=== PATIENT | male | born 1995 | race Caucasian/White ===

== ENCOUNTER 2020-05-22 11:04 | Emergency (ER) | payer OTHER ==
[~2020-05-22] VITALS: Ht 175.3 cm; Wt 73.2 kg
[2020-05-22] MEDS ORDERED: MULTCAP PO ×2 (11:19→16:26)
[2020-05-22] MEDS ORDERED: NS 1,000 ML IV SCH (11:30)
[2020-05-22] MEDS ORDERED: KETOROLAC 30 MG/ML 1ML VIAL IV ONE (11:30)
[2020-05-22] MEDS ORDERED: METOCLOPRAMIDE INJ 10MG/2ML VIAL (J2765 PER 1) IV ONE (11:30)
[2020-05-22 12:05] LABS: BASO % 0.3 % (0.0-1.0); EOS # 0.1 10^3/uL (0.0-0.5); EOS % 1.6 % (0.0-3.0); HEMATOCRIT 42.4 % (42.0-52.0); HEMOGLOBIN 14.7 g/dl (13.5-17.5); LYMPH # 1.3 10^3/uL (1.5-5.0); LYMPH % 21.1 % (24.0-44.0); MEAN CORPUSCULAR HEMOGLOBIN 30.6 pg (27.0-33.0); MEAN CORPUSCULAR HGB CONC 34.7 g/dl (32.0-36.5); MEAN CORPUSCULAR VOLUME 88.1 fl (80.0-96.0); MONO # 0.5 10^3/uL (0.0-0.8); MONO % 7.9 % (0.0-5.0); NEUTROPHILS # 4.3 10^3/uL (1.5-8.5); NEUTROPHILS % 68.8 % (36.0-66.0); PLATELET COUNT, AUTOMATED 216 10^3/uL (150-450); RED BLOOD COUNT 4.81 10^6/uL (4.30-6.10); WHITE BLOOD COUNT 6.3 10^3/uL (4.0-10.0)
--- NOTE | 2020-05-22 12:14 | REPVR ---
PROCEDURE INFORMATION: Exam: CT Abdomen And Pelvis Without Contrast Exam date and time: 05/22/2020 11:21 AM Age: 24 years old Clinical indication: Abdominal pain; Flank; Right; Additional info: Rigth flank pain TECHNIQUE: Imaging protocol: Computed tomography of the abdomen and pelvis without contrast. Radiation optimization: All CT scans at this facility use at least one of these dose optimization techniques: automated exposure control; mA and/or kV adjustment per patient size (includes targeted exams where dose is matched to clinical indication); or iterative reconstruction. COMPARISON: No relevant prior studies available. FINDINGS: Detailed evaluation of the abdominal and pelvic viscera is somewhat limited in the absence of intravenous contrast. Pleural space: Mild interstitial prominence without acute airspace or pleural disease. Liver: No focal hepatic mass. Gallbladder and bile ducts: No cholelithiasis or biliary ductal dilatation. Pancreas: No pancreatic mass or ductal dilatation. Spleen: No splenomegaly. Adrenals: Unremarkable adrenals. Kidneys and ureters: Marked right hydronephrosis in association with a 4 mm right ureteral calculus at the L3 level. Nonobstructing 2 mm right renal calculus. Stomach and bowel: Mildly dilated fluid-filled stomach. No significant small bowel dilatation. Prominent stool. Appendix: No acute appendicitis. Intraperitoneal space: No free fluid. Vasculature: Normal caliber of the abdominal aorta. Lymph nodes: Subcentimeter lymph nodes. Bladder: Normal bladder morphology. Reproductive: Symmetric prominence of the seminal vesicles. Bones/joints: No acute osseous pathology. IMPRESSION: 1. Marked right hydronephrosis in association with a 4 mm right ureteral calculus at the L3 level. 2. Nonobstructing 2 mm right renal calculus. Electronically signed by: Carlos Eduardo Aceves On 05/22/2020 12:14:25 PM
[2020-05-22 12:37] LABS: BLOOD UREA NITROGEN 16 MG/DL (7-18); CALCIUM LEVEL 9.2 MG/DL (8.5-10.1); CARBON DIOXIDE LEVEL 25 MEQ/L (21-32); CHLORIDE LEVEL 107 MEQ/L (98-107); CREATININE FOR GFR 1.09 MG/DL (0.70-1.30); GLOMERULAR FILTRATION RATE > 60.0 (>60); GLUCOSE, FASTING 109 MG/DL (70-100); SODIUM LEVEL 140 MEQ/L (136-145)
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
[2020-05-22] MEDS ORDERED: NS IV ONE (14:00)
[2020-05-22] MEDS ORDERED: KETAMINE HCL IV ONE (14:00)
[2020-05-22] MEDS ORDERED: KETO10TAB PO ×2 (14:09→16:26)
[2020-05-22] MEDS ORDERED: FLOM0.4C39 PO ×2 (14:10→16:26)
[2020-05-22] MEDS ORDERED: MORPHINE 4 MG/ML 1ML VIAL/SYRINGE (J2270) IV ONE (14:15)
[2020-05-22 15:15] VITALS: BP 125/59
== END 2020-05-22 15:50 | disposition home or self-care (01) ==
LOC: M ED 11:04 → EDBD 11:04 → M ED 15:50
DX: N20.1 Calculus of ureter (principal); N13.30 Unspecified hydronephrosis; F17.200 Nicotine dependence, unspecified, uncomplicated
CPT/HCPCS: 74176; 76870; 80048; 81001; 85025; 93976; 96374; 96375; 99284; J1885; J2270; J2765

== ENCOUNTER 2020-07-18 14:13 | Emergency (ER) | payer OTHER ==
[~2020-07-18] VITALS: Ht 175.3 cm; Wt 78.7 kg
[2020-07-18 14:13] VITALS: BP 143/90
[~2020-07-18 14:13] MED LIST: FLOM0.4C39 PO; KETO10TAB PO; MULTCAP PO
[2020-07-18] MEDS ORDERED: LIDOCAINE 1% MDV 20ML VIAL SC ONE (14:45)
== END 2020-07-18 15:22 | disposition home or self-care (01) ==
LOC: M ED 14:13
DX: S61.411A Laceration without foreign body of right hand, initial encounter (principal); W26.0XXA Contact with knife, initial encounter; Y92.099 Unspecified place in other non-institutional residence as the place of occurrence of the external cause; Y93.89 Activity, other specified; Y99.9 Unspecified external cause status

== ENCOUNTER 2020-08-10 21:05 | Emergency (ER) | payer OTHER ==
[~2020-08-10] VITALS: Ht 175.3 cm; Wt 77.3 kg
[2020-08-10] MEDS ORDERED: OXYCODONE/APAP 5MG/325MG(BULK FOR ED) 1 TABLET PO ONE (22:30)
[2020-08-10] MEDS ORDERED: BACI500O21 TOP (22:40)
[2020-08-10] MEDS ORDERED: MORPHINE 4 MG/ML 1ML VIAL/SYRINGE (J2270) IV ONE (22:45)
[2020-08-10 23:07] VITALS: BP 143/97
== END 2020-08-10 23:12 | disposition home or self-care (01) ==
LOC: M ED 21:05
DX: T23.202A Burn of second degree of left hand, unspecified site, initial encounter (principal); T31.0 Burns involving less than 10% of body surface; X19.XXXA Contact with other heat and hot substances, initial encounter; Y92.099 Unspecified place in other non-institutional residence as the place of occurrence of the external cause; Y93.9 Activity, unspecified; Y99.9 Unspecified external cause status; Z79.899 Other long term (current) drug therapy
CPT/HCPCS: 16000; 96374; 99284; J2270

== ENCOUNTER 2020-08-15 17:20 | Observation (INO) | payer OTHER ==
[~2020-08-15] VITALS: Ht 175.3 cm; Wt 80.6 kg
[~2020-08-15 17:20] MED LIST changes: +BACI500O21 TOP
[2020-08-15] MEDS ORDERED: KETOROLAC 30 MG/ML 1ML VIAL As Ordered ONE (17:43)
[2020-08-15] MEDS ORDERED: ONDANSETRON 4MG/2ML VIAL IV ONE (17:45)
[2020-08-15] MEDS ORDERED: NS 1,000 ML IV ONE (17:45)
[2020-08-15] MEDS ORDERED: KETOROLAC 30 MG/ML 1ML VIAL IV ONE (17:45)
[2020-08-15 17:51] LABS: BASO % 0.3 % (0.0-1.0); EOS # 0.1 10^3/uL (0.0-0.5); HEMATOCRIT 45.9 % (42.0-52.0); HEMOGLOBIN 15.6 g/dl (13.5-17.5); LYMPH % 14.6 % (24.0-44.0); MEAN CORPUSCULAR HEMOGLOBIN 30.8 pg (27.0-33.0); MEAN CORPUSCULAR VOLUME 90.5 fl (80.0-96.0); MONO # 1.1 10^3/uL (0.0-0.8); MONO % 8.3 % (0.0-5.0); NEUTROPHILS # 10.1 10^3/uL (1.5-8.5); NEUTROPHILS % 75.4 % (36.0-66.0); PLATELET COUNT, AUTOMATED 237 10^3/uL (150-450); RED BLOOD COUNT 5.07 10^6/uL (4.30-6.10); WHITE BLOOD COUNT 13.4 10^3/uL (4.0-10.0)
[2020-08-15] MEDS ORDERED: TAMS1CAP17 PO (17:55)
[2020-08-15] MEDS ORDERED: LOPE-39 PO (17:55)
[2020-08-15] MEDS ORDERED: ACET1TAB55 PO (17:57)
[2020-08-15 18:14] LABS: ALBUMIN 4.5 GM/DL (3.2-5.2); BILIRUBIN,DIRECT 0.2 MG/DL (0.0-0.2); BILIRUBIN,TOTAL 0.7 MG/DL (0.2-1.0); TOTAL PROTEIN 7.6 GM/DL (6.4-8.2)
--- NOTE | 2020-08-15 18:26 | REPVR ---
PROCEDURE INFORMATION: Exam: CT Abdomen And Pelvis Without Contrast Exam date and time: 08/15/2020 5:58 PM Age: 24 years old Clinical indication: Abdominal pain; Localized; Right; Additional info: Right flank pain/hx ureterolithiasis TECHNIQUE: Imaging protocol: Computed tomography of the abdomen and pelvis without contrast. Radiation optimization: All CT scans at this facility use at least one of these dose optimization techniques: automated exposure control; mA and/or kV adjustment per patient size (includes targeted exams where dose is matched to clinical indication); or iterative reconstruction. COMPARISON: CT ABD PELVIS W/O CONTRAST 05/22/2020 11:32 AM FINDINGS: Limitations: The absence of intravenous contrast significantly reduces sensitivity for infectious, inflammatory, neoplastic and vascular abnormalities. The absence of enteric contrast significantly reduces sensitivity for gastrointestinal pathology. Lungs: The lung bases are clear. Heart: Heart size is normal. Liver: Normal. No mass. Gallbladder and bile ducts: Normal. No calcified stones. No ductal dilation. Pancreas: Normal. No ductal dilation. Spleen: Normal. No splenomegaly. Adrenal glands: Normal. No mass. Kidneys and ureters: A 7 x 6 x 4 mm stone at the right ureterovesicular junction causes severe right hydronephrosis and moderate hydroureter. Moderate right perinephric stranding is worse than it was 3 months ago. The left kidney and ureter are unremarkable. Stomach and bowel: The stomach is full of food. The stomach and duodenum are unremarkable. The small bowel is normal in caliber without wall thickening. The colon is unremarkable. There is no acute colonic distention, diverticulosis or inflammation. Appendix: The appendix is normal in caliber without surrounding inflammation. Intraperitoneal space: Unremarkable. No free air. No significant fluid collection. Vasculature: Unremarkable. No abdominal aortic aneurysm. Lymph nodes: Unremarkable. No enlarged lymph nodes. Urinary bladder: Unremarkable as visualized. Reproductive: The prostate appears appropriate for 24 years of age. Bones/joints: Unremarkable. No acute fracture. Soft tissues: Unremarkable. IMPRESSION: A 7 x 6 x 4 mm stone at the right ureterovesicular junction causes severe right hydronephrosis and moderate hydroureter. On the comparison CT 3 months ago, this stone was at the ureteropelvic junction. Compared to the prior CT, the right hydronephrosis is worse. The right renal pelvis is 3.9 cm in AP dimension, compared to 3.0 cm previously. Because the stone is too large to pass spontaneously, a urology consultation is recommended. Electronically signed by: Sean Renee On 08/15/2020 18:26:20 PM
[2020-08-15] MEDS ORDERED: HYDROMORPHONE HCL 0.5 MG/ 0.5 ML SYRINGE (J1170 PER 1) IV PRN (22:00)
[2020-08-15] MEDS ORDERED: ONDANSETRON 4MG/2ML VIAL IV PRN (22:15)
[2020-08-15 22:21] VITALS: BP 141/75
[2020-08-15] MEDS: KETOROLAC 30 MG/ML 1ML VIAL IV PRN (22:29)
[2020-08-15] MEDS: LR 1,000 ML IV SCH (23:08)
[2020-08-16] MEDS ORDERED: ceFAZolin SOD 2 GM in IV 1 EA IV ONE (06:00)
[2020-08-16 06:50] VITALS: BP 136/76
[2020-08-16] MEDS: KETOROLAC 30 MG/ML 1ML VIAL IV PRN ×2 (06:52→12:42)
[2020-08-16] MEDS ORDERED: CONRAY-60 60% 50ML VIAL (Q9961) As Ordered ONE (07:43)
[2020-08-16] MEDS ORDERED: ceFAZolin 2 GM/D5W 50 ML IV BAG (J0690 PER 500MG) As Ordered ONE (08:03)
[2020-08-16] MEDS ORDERED: propofoL 200 MG/20 ML VIAL As Ordered ONE (08:09)
[2020-08-16] MEDS ORDERED: LIDOCAINE 2% 100MG/5ML SDV (FOR ANES.) As Ordered ONE (08:09)
[2020-08-16] MEDS ORDERED: fentaNYL 100 MCG/2 ML INJECTION (J3010) As Ordered ONE ×3 (08:13→10:21)
[2020-08-16] MEDS ORDERED: MIDAZOLAM INJ 2MG/2ML VIAL (J2250 PER 1MG) As Ordered ONE (08:13)
[2020-08-16] MEDS ORDERED: KETOROLAC 60MG 2ML VIAL As Ordered ONE (08:52)
[2020-08-16] MEDS ORDERED: ONDANSETRON 4MG/2ML VIAL As Ordered ONE (08:52)
[2020-08-16] MEDS ORDERED: dexameTHASONE 4 MG/ML 1ML VIAL (J1100 PER 1MG) As Ordered ONE (08:52)
[2020-08-16] MEDS ORDERED: oxyBUTYnin *DITROPAN XL* 5 MG TABCR PO SCH (09:00)
[2020-08-16] MEDS ORDERED: INFLUENZA QUADRIVALENT PF VACCINE 0.5ML SYRINGE IM ONE (09:00)
[2020-08-16] MEDS ORDERED: MEPERIDINE INJ 25 MG/ML VIAL (J2175) As Ordered ONE (09:46)
[2020-08-16] MEDS: fentaNYL 100 MCG/2 ML INJECTION (J3010) IV PRN ×8 (09:50→10:40)
[2020-08-16] MEDS: MEPERIDINE INJ 25 MG/ML VIAL (J2175) IV PRN ×2 (09:50→09:55)
--- NOTE | 2020-08-16 09:51 | REP ---
INDICATION: RIGHT LASER LITHOTRIPSY, STENT PLACEMENT. COMPARISON: None TECHNIQUE: Single spot view obtained using a portable C-arm device. FINDINGS: A double pigtail stent is seen on the right the proximal portion of which is in the region of the renal pelvis in the distal portion of which is uncoiled in the urinary bladder. 12 seconds of fluoroscopy time was provided for the exam. IMPRESSION: As above <Electronically signed by Ronaldo De La Rosa > 08/16/20 [id number]
[2020-08-16] MEDS ORDERED: ANEXSIA, NORCO 7.5MG/325MG TABLET(HYDROCODONE/APAP) PO PRN (10:00)
[2020-08-16] MEDS ORDERED: PYRI1TAB5 PO (10:15)
[2020-08-16] MEDS ORDERED: LR 1,000 ML IV SCH (10:15)
[2020-08-16] MEDS ORDERED: NORC1TAB8 PO (10:15)
[2020-08-16] MEDS ORDERED: OXYB-54 PO (10:15)
[2020-08-16] MEDS ORDERED: BACT800T5 PO (10:15)
[2020-08-16] MEDS ORDERED: METOCLOPRAMIDE INJ 10MG/2ML VIAL (J2765 PER 1) IV PRN (10:15)
[2020-08-16] MEDS ORDERED: ONDANSETRON 4MG/2ML VIAL IV PRN (10:15)
[2020-08-16] MEDS: oxyCODONE 5MG TAB PO PRN ×2 (10:25→11:01)
[2020-08-16] MEDS: PHENAZOPYRIDINE 100 MG TAB PO SCH ×2 (10:26→14:00)
[2020-08-16 11:30] VITALS: BP 134/76
[2020-08-16 12:00] VITALS: BP 137/71
[2020-08-16] MEDS: LR 1,000 ML IV SCH (12:05)
[2020-08-16 12:30] VITALS: BP 157/62
[2020-08-16 13:30] VITALS: BP 165/99
[2020-08-16] MEDS ORDERED: BACTRIM 160MG/800MG DS TAB PO SCH (21:00)
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
--- NOTE | 2020-08-17 14:16 | RO ---
DATE OF OPERATION: 08/16/2020 PREOPERATIVE DIAGNOSIS: Right distal ureteral stone. POSTOPERATIVE DIAGNOSIS: Right distal ureteral stone. PROCEDURES PERFORMED: * Right ureteroscopic stone extraction with laser lithotripsy and basket extraction of stone. * Stent placement. SURGEON: Reynaldo Suazo MD ANESTHESIA: General. 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 When seen in May his stone was in the proximal ureter with another small stone in the right lower pole. The stone in the ureter measured about 7 mm. Upon presentation last night with severe irritative symptoms and pain he was found to have the stone now at the ureterovesical junction with the right lower pole stone apparently also adjacent to it in the distal ureter. The kidney now clear. Hydronephrosis noted. PROCEDURE: After obtaining informed consent the patient was taken to the operating room. After adequate general anesthesia he was prepped and draped in the usual manner. 22-Macanese diagnostic cystoscope was advanced to the bladder, bladder inspected and no stones noted. A wire was negotiated past the stone to the kidney under fluoroscopic control. The rigid mini ureteroscope was advanced alongside the wire without need for dilation of distal ureter. The stone was visualized and noted to be impacted in the distal ureter. We were able to displace it and then used the 272 micron Holmium laser fiber to fragment the stone into multiple small pieces. Using helical basket we were able to sweep the pieces from the ureter. A portion of these were submitted for stone analysis. The procedure was concluded with placement of 5-Macanese stent over the safety guidewire. The string was left attached. Endoscopic and fluoroscopic confirmation of stent positioning was obtained. The patient was transferred to recovery in satisfactory condition. String was left attached to the stent. There were no complications. Blood loss minimal. DISPOSITION: The patient is dismissed home to follow up in 7-10 days for stent removal in [facility]. Diet as tolerated. Activity light. MEDICATIONS: * Pyridium 200 three times a day apparent dysuria. * Septra DS one PO at bedtime. * Walton 7.5 one PO every 4 hours PRN pain. * Oxybutynin 5 mg ER daily. MTDD
== END 2020-08-16 14:30 | disposition home or self-care (01) ==
LOC: M ED 17:20 → M ED INP 17:21 → ENRESERV 21:34 → M MS5PR 22:20
PROVIDERS: ADMIT Urology; ATTEND Urology
DX: N13.2 Hydronephrosis with renal and ureteral calculous obstruction (principal)
CPT/HCPCS: 36415; 52356; 74176; 74420; 80047; 80076; 81001; 82365; 83690; 85025; 88300; 96361; 96374; 96375; 96376; 99284; C1769; C2617; J0690; J1100; J1885; J2175; J2250; J2405; J3010; U0002

== ENCOUNTER 2021-10-18 12:54 | Emergency (ER) | payer OTHER ==
[~2021-10-18] VITALS: Ht 175.3 cm; Wt 79.5 kg
[~2021-10-18 12:54] MED LIST changes: +ACET1TAB55 PO; +BACT800T5 PO; +LOPE-39 PO; +NORC1TAB8 PO; +OXYB-54 PO; +PYRI1TAB5 PO; +TAMS1CAP17 PO
[2021-10-18 13:11] VITALS: BP 135/84
[2021-10-18] MEDS ORDERED: VENTAER INH (15:12)
== END 2021-10-18 15:36 | disposition home or self-care (01) ==
LOC: M ED 12:54
DX: J06.9 Acute upper respiratory infection, unspecified (principal); Z20.822 Contact with and (suspected) exposure to COVID-19; Z87.442 Personal history of urinary calculi; Z79.899 Other long term (current) drug therapy
CPT/HCPCS: 99283; U0003

== ENCOUNTER 2022-06-22 14:52 | Emergency (ER) | payer OTHER ==
[~2022-06-22] VITALS: Ht 175.3 cm; Wt 84.7 kg
[~2022-06-22 14:52] MED LIST changes: +VENTAER INH
[2022-06-22] MEDS ORDERED: CLAR10CA3 PO (15:04)
[2022-06-22 20:21] VITALS: BP 134/77
== END 2022-06-22 20:27 | disposition home or self-care (01) ==
LOC: M ED 14:52
DX: R07.81 Pleurodynia (principal); Z87.442 Personal history of urinary calculi